=== PATIENT | male | born 1995 | race Two or more races ===

== ENCOUNTER 2022-04-08 21:06 | Emergency (ER) | payer OTHER ==
[~2022-04-08] VITALS: Ht 180.3 cm; Wt 84.1 kg
[2022-04-08 23:35] VITALS: BP 118/68
[2022-04-09] MEDS ORDERED: KETOROLAC TROMETH 30 MG/ML 1ML VIAL IM ONE (00:30)
== END 2022-04-09 01:03 | disposition home or self-care (01) ==
LOC: ER 21:06
DX: M71.21 Synovial cyst of popliteal space [Baker], right knee (principal)
CPT/HCPCS: 73562; 96372; 99283; J1885